=== PATIENT | female | born 1995 | race Caucasian/White ===

== ENCOUNTER 2016-05-15 20:16 | Observation (INO) | payer MEDICAID | END 2016-05-15 21:21 | disposition home or self-care (01) | LOC: SPU 20:16 | PROVIDERS: ADMIT Specialist; ATTEND Specialist | DX: O46.92 Antepartum hemorrhage, unspecified, second trimester (principal); Z3A.21 21 weeks gestation of pregnancy | CPT/HCPCS: 59025; 81002; G0378 ==